=== PATIENT | male | born 2000 | race African-American/Black ===

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

== ENCOUNTER 2021-01-24 06:09 | Emergency (ER) | payer OTHER ==
[2021-01-24] MEDS ORDERED: Dexamethasone 10 MG/ML VIAL ONE (10:43)
== END 2021-01-24 10:56 | disposition home or self-care (01) ==
LOC: ERS 06:09
DX: J02.9 Acute pharyngitis, unspecified (principal)
CPT/HCPCS: 87081; 87430; 99283; J1100

== ENCOUNTER 2022-07-04 01:22 | Emergency (ER) | payer OTHER ==
[2022-07-04] MEDS ORDERED: Acetaminophen 500 MG TAB ONE (02:53)
== END 2022-07-04 02:56 | disposition home or self-care (01) ==
LOC: ERS 01:22
DX: U07.1 COVID-19 (principal)
CPT/HCPCS: 99282